=== PATIENT | male | born 1930 | race Caucasian/White ===

== ENCOUNTER → 2020-02-16 | Outpatient (CLI) | payer OTHER ==
[~2020-02-16] MED LIST: ADULT LOW DOSE81 MG; ATIVAN2 MG PO; DURAGESIC1 EACH TRANSDERM; LEVALBUTER1.25 MG/0. INH; LOMOTIL TABLET1 EACH; LORAZEPAM 1 MG T1 MG PO; MORPHINE SULFAT15 M3 PO; MULTIVITAMINS; NORCO 5-325 TA1 EAC2 PO; NORCO 5-325 TA1 EACH PO; PENICILLIN V P500 MG PO; PROLIA60 MG/1 ML SUBQ; ZOCOR40 MG PO
== END ==
LOC: PET 13:16
PROVIDERS: ATTEND Internal Medicine Critical Care Medicine
DX: C18.7 Malignant neoplasm of sigmoid colon (principal); C67.3 Malignant neoplasm of anterior wall of bladder; C61 Malignant neoplasm of prostate; R91.1 Solitary pulmonary nodule; C79.89 Secondary malignant neoplasm of other specified sites; C78.7 Secondary malignant neoplasm of liver and intrahepatic bile duct; C79.51 Secondary malignant neoplasm of bone